=== PATIENT | female | born 1970 | race Caucasian/White ===

== ENCOUNTER → 2016-06-01 | Outpatient (CLI) | payer MEDICAID | LOC: MW.CHIM 15:26 | PROVIDERS: ATTEND Internal Medicine | DX: M25.50 Pain in unspecified joint (principal) | CPT/HCPCS: 36415; 84550; 85652; 86038; 86430 ==

== ENCOUNTER → 2016-06-14 | Outpatient (CLI) | payer MEDICAID ==
--- NOTE | 2016-06-14 17:11 | CR ---
EXAMINATION: Left foot HISTORY: Plantar fibromatosis COMPARISON: None TECHNIQUE: 2 views FINDINGS/IMPRESSION: There is no acute osseous abnormality, dislocation, or fracture identified. The re is mild hallux valgus and pes planus. There is a moderate plantar calcaneal spur.
== END ==
LOC: MW.CHPOD 13:53
PROVIDERS: ATTEND Podiatrist Foot & Ankle Surgery
DX: M72.2 Plantar fascial fibromatosis (principal); M20.12 Hallux valgus (acquired), left foot; M21.42 Flat foot [pes planus] (acquired), left foot; M77.32 Calcaneal spur, left foot
CPT/HCPCS: 73620-26-LT; 73620-LT

== ENCOUNTER 2017-01-03 14:54 | Emergency (ER) | payer MEDICAID ==
[2017-01-03 15:31] VITALS: BP 122/62
== END 2017-01-03 15:30 | disposition left against medical advice (07) ==
LOC: MW.ED 14:54
DX: Z53.21 Procedure and treatment not carried out due to patient leaving prior to being seen by health care provider (principal)

== ENCOUNTER 2017-01-04 16:34 | Emergency (ER) | payer MEDICAID ==
[2017-01-04 16:48] VITALS: BP 136/90
[2017-01-04] MEDS ORDERED: Dexamethasone 4 MG Tab PO ONE (16:51)
--- NOTE | 2017-01-04 16:51 | EDM.PDOC ---
ED HPI GENERAL MEDICAL PROBLEM - General Chief Complaint: Allergic Reaction Stated Complaint: HIVES THROUGHOUT BODY Time Seen by Provider: 01/04/17 16:49 Source of Information: Reports: Patient History Limitations: Reports: No Limitations - History of Present Illness INITIAL COMMENTS - FREE TEXT/NARRATIVE: HISTORY AND PHYSICAL: []46-year-old female who presented yesterday and then left without being seen once she found she did not have chickenpox she thought this allergy would be taken care of with Benadryl [id number] History of Present Illness: []Patient works at [employer] and was putting [employer] up. When she went home yesterday noticed that she started having itching and hives. Besides have worsened over the day Review of Systems: As per history of present illness and below otherwise all systems reviewed and negative. Past medical history: As per history of present illness and as reviewed below otherwise noncontributory. Surgical history: As per history of present illness and as reviewed below otherwise noncontributory. Social history: No reported history of drug or alcohol abuse. Family history: As per history of present illness and as reviewed below otherwise noncontributory. Physical exam: Alert and oriented female who states that she has some tightness with breathing. Skin has raised erythematous hives over her trunk and arms and back. HEENT: Atraumatic, normocehpalic, pupils reactive, negative for conjunctival pallor or scleral icterus, mucous membranes moist, throat clear, neck supple, nontender, trachea midline. Lungs: Clear to auscultation, breath sounds equal bilaterally, chest non tender. Heart: S1S2, regular, negative for clicks, rubs, or JVD. Abdomen: Soft, nondistended, nontender. Negative for masses or hepatossplenmegaly. Negative for costovertebral tenderness. Pelvis: Stable nontender. Genitourinary: Deferred. Rectal: Deferred Extremities: Atraumatic, negative for cords or calf pain. Neurovascular unremarkable. Neuro: Awake, alert, oriented. Cranial nerves II through XII unremarkable. Cerebellum unremarkable. Motor and sensory unremarkable throughout. Exam nonfocal. Diagnostics: [] Therapeutics: [Dexamethasone 4 mg by mouth] Impression: [Allergic reaction Hives] Plan: [Discharged to home] Medrol Dosepak Benadryl 50 mg by mouth every 4 hours Claritin 10 mg daily 2 weeks Pepcid [id number] 4-5 times daily for itching Definitive disposition and diagnosis as appropriate pending reevaluation and review of above. Onset: Sudden Duration: Day(s): (1) hives Pain Score (Numeric/FACES): 8 - Related Data Allergies Allergy/AdvReac Type Severity Reaction Status Date / Time hydrocodone Allergy Headache Verified 01/04/17 16:48 montelukast sodium Allergy Tachycardia Verified 01/04/17 16:48 [From Singulair] Penicillins Allergy Difficulty Verified 01/04/17 16:48 Swallowing Home Meds: Home Meds Vilazodone [Viibryd] 40 mg PO QAM 08/06/13 [History] QUEtiapine Fumarate [Seroquel Xr] 600 mg PO BEDTIME 08/24/15 [History] Diclofenac Sodium [Diclofenac Sodium ER] 100 mg PO DAILY 01/03/17 [History] Pregabalin [Lyrica] 75 mg PO BEDTIME 01/03/17 [History] Venlafaxine [Effexor] 75 mg PO DAILY 01/03/17 [History] methylPREDNISolone [Medrol] 4 mg PO ASDIRECTED #1 dosepk 01/04/17 [Rx] Past Medical History HEENT History: Reports: Impaired Vision Other HEENT History: wears glasses, has upper denture Cardiovascular History: Reports: None Respiratory History: Reports: Asthma, Sleep Apnea Other Respiratory History: uses CPAP Gastrointestinal History: Reports: Hiatal Hernia Other Gastrointestinal History: she thinks she has a hiatal hernia Genitourinary History: Reports: None 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 Musculoskeletal History: Reports: Fracture Other Musculoskeletal History: fingers Neurological History: Reports: Migraines Psychiatric History: Reports: Bipolar Other Psychiatric History: history of bipolar affective disorder Endocrine/Metabolic History: Reports: Obesity/BMI 30+ Hematologic History: Reports: None Immunologic History: Reports: None Oncologic (Cancer) History: Reports: None Dermatologic History: Reports: None - Infectious Disease History Infectious Disease History: Reports: Chicken Pox - Past Surgical History Head Surgeries/Procedures: Reports: None Cardiovascular Surgical History: Reports: None GI Surgical History: Reports: Cholecystectomy, Hernia, Inguinal Female Surgical History: Reports: Tubal Ligation Endocrine Surgical History: Reports: None Neurological Surgical History: Reports: None Musculoskeletal Surgical History: Reports: None Other Musculoskeletal Surgeries/Procedures:: Ankle surgery Oncologic Surgical History: Reports: None Dermatological Surgical History: Reports: None Social & Family History - Family History Family Medical History: Noncontributory HEENT: Reports: None Cardiac: Reports: Heart Failure Respiratory: Reports: COPD, Other (See Below) Other Respiratory Family Hisory: Emphysema Neurological: Reports: Migraines Psychiatric: Reports: Anxiety, Bipolar, Depression Oncologic: Reports: Breast, Colon, Pancreatic - Tobacco Use Smoking Status *Q: Current Every Day Smoker Years of Tobacco use: 20 Packs/Tins Daily: 0.5 Used Tobacco, but Quit: No Month Tobacco Last Used: August, Second Hand Smoke Exposure: Yes - Caffeine Use Caffeine Use: Reports: Coffee, Soda, Tea - Alcohol Use Days Per Week of Alcohol Use: 0 Number of Drinks Per Day: 0 Total Drinks Per Week: 0 - Recreational Drug Use Recreational Drug Use: No Drug Use in Last 12 Months: No ED ROS ALLERGIC REACTION - Review of Systems Review Of Systems: ROS reveals no pertinent complaints other than HPI. ED EXAM GENERAL NO PERIP PULSE - Physical Exam Exam: See Below (See dictation) Course - Vital Signs Last Recorded V/S: Last Vital Signs Temp 35.8 C 01/04/17 16:45 Pulse 106 H 01/04/17 16:45 Resp 18 01/04/17 16:45 BP 136/90 01/04/17 16:45 Pulse Ox 95 01/04/17 16:45 - Orders/Labs/Meds Meds: Medications Discontinued Medications Generic Name Dose Route Start Last Admin Trade Name Susana PRN Reason Stop Dose Admin Dexamethasone 4 mg 01/04/17 16:51 01/04/17 17:08 Dexamethasone PO 01/04/17 16:52 4 mg ONETIME ONE Administration Departure - Departure Time of Disposition: 17:14 Disposition: Home, Self-Care 01 Condition: Good Clinical Impression: Hives Allergic reaction Qualifiers: Encounter type: initial encounter Qualified Code(s): T78.40XA - Allergy, unspecified, initial encounter - Discharge Information Prescriptions: methylPREDNISolone [Medrol] 4 mg PO ASDIRECTED #1 dosepk Referrals: PCP,None [Primary Care Provider] - Additional Instructions: The following information is given to patients seen in the emergency department who are being discharged to home. This information is to outline your options for follow-up care. We provide all patients seen in our emergency department with a follow-up referral. The need for follow-up, as well as the timing and circumstances, are variable depending upon the specifics of your emergency department visit. If you don't have a primary care physician on staff, we will provide you with a referral. We always advise you to contact your personal physician following an emergency department visit to inform them of the circumstance of the visit and for follow-up with them and/or the need for any referrals to a consulting specialist. The emergency department will also refer you to a specialist when appropriate. This referral assures that you have the opportunity for followup care with a specialist. All of these measure are taken in an effort to provide you with optimal care, which includes your followup. Under all circumstances we always encourage you to contact your private physician who remains a resource for coordinating your care. When calling for followup care, please make the office aware that this follow-up is from your recent emergency room visit. If for any reason you are refused follow-up, please contact the [facility] emergency department at and asked to speak to the emergency department charge nurse. Prescription has been electronically sent to [place] pharmacy Follow-up with your regular provider Recommended to take Claritin 10 mg one daily for the next 2 weeks Benadryl 50 mg by mouth every 4 hours Pepcid [id number] 4-5 times daily to relieve itching
== END 2017-01-04 17:34 | disposition home or self-care (01) ==
LOC: MW.ED 16:34
DX: L50.0 Allergic urticaria (principal); F17.210 Nicotine dependence, cigarettes, uncomplicated; Z88.5 Allergy status to narcotic agent; Z88.0 Allergy status to penicillin; Z79.899 Other long term (current) drug therapy
CPT/HCPCS: 99282; J8540

== ENCOUNTER 2017-01-09 12:37 | Emergency (ER) | payer OTHER, MEDICAID ==
[2017-01-09 12:42] VITALS: BP 137/89
[2017-01-09] MEDS ORDERED: LORazepam 2 MG/ML SDV IVPUSH ONE (12:51)
[2017-01-09] MEDS ORDERED: Aspirin 81 MG Tab.Chew PO ONE (13:17)
[2017-01-09 13:23] LABS: CHLORIDE,CL 108 mmol/L (98-110); SODIUM,NA 139 mmol/L (136-146)
--- NOTE | 2017-01-09 13:59 | CR ---
EXAMINATION: Portable chest radiograph. HISTORY: Shortness of breath. FINDINGS: The trachea is midline. The cardiomediastinal silhouette is within normal limits. No pulmonary infilt rates, effusions or pneumothorax. Osseous structures appear unremarkable. IMPRESSION: No acute cardiopulmonary process.
--- NOTE | 2017-01-09 14:01 | EDM.PDOC ---
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 However upon my arrival the symptoms had resolved of chest pain shortness of breath she had received an aspirin in route from the EMS workers. Patient is in no distress sitting comfortably in a chair no fever nausea vomiting diarrhea constipation chest pain shortness breath headache dizziness palpitation about a urine symptoms Review of systems: As per history of present illness and below otherwise all systems reviewed and negative. Past medical history: As per history of present illness and as reviewed below otherwise noncontributory. Surgical history: As per history of present illness and as reviewed below otherwise noncontributory. Social history: No reported history of drug or alcohol abuse. Family history: As per history of present illness and as reviewed below otherwise noncontributory. Physical exam: HEENT: Atraumatic, normocephalic, pupils reactive, negative for conjunctival pallor or scleral icterus, mucous membranes moist, throat clear, neck supple, nontender, trachea midline. Lungs: Clear to auscultation, breath sounds equal bilaterally, chest nontender. Heart: S1S2, regular, negative for clicks, rubs, or JVD. Abdomen: Soft, nondistended, nontender. Negative for masses or hepatosplenomegaly. Negative for costovertebral tenderness. Pelvis: Stable nontender. Genitourinary: Deferred. Rectal: Deferred. Extremities: Atraumatic, negative for cords or calf pain. Neurovascular unremarkable. Neuro: Awake, alert, oriented. Cranial nerves II through XII unremarkable. Cerebellum unremarkable. Motor and sensory unremarkable throughout. Exam nonfocal. Diagnostics: []Lab as below EKG Chest 1 view Therapeutics: []Aspirin 324 mg chewable provided via last Ativan 1 mg by mouth now Impression: []Anxiety/panic improved Chronic history of baseline Definitive disposition and diagnosis as appropriate pending reevaluation and review of above. Chest Pain Score (Numeric/FACES): 7 - Related Data Allergies Allergy/AdvReac Type Severity Reaction Status Date / Time hydrocodone Allergy Headache Verified 01/09/17 12:42 montelukast sodium Allergy Tachycardia Verified 01/09/17 12:42 [From Singadrianair] Penicillins Allergy Difficulty Verified 01/09/17 12:42 Swallowing Home Meds: Home Meds Vilazodone [Viibryd] 40 mg PO QAM 08/06/13 [History] QUEtiapine Fumarate [Seroquel Xr] 600 mg PO BEDTIME 08/24/15 [History] Pregabalin [Lyrica] 75 mg PO BEDTIME 01/03/17 [History] Venlafaxine [Effexor] 75 mg PO DAILY 01/03/17 [History] Past Medical History HEENT History: Reports: Impaired Vision Other HEENT History: wears glasses, has upper denture Cardiovascular History: Reports: None Respiratory History: Reports: Asthma, Sleep Apnea Other Respiratory History: uses CPAP Gastrointestinal History: Reports: Hiatal Hernia Other Gastrointestinal History: she thinks she has a hiatal hernia Genitourinary History: Reports: None 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 Musculoskeletal History: Reports: Fracture Other Musculoskeletal History: fingers Neurological History: Reports: Migraines Psychiatric History: Reports: Bipolar Other Psychiatric History: history of bipolar affective disorder Endocrine/Metabolic History: Reports: Obesity/BMI 30+ Hematologic History: Reports: None Immunologic History: Reports: None Oncologic (Cancer) History: Reports: None Dermatologic History: Reports: None - Infectious Disease History Infectious Disease History: Reports: Chicken Pox - Past Surgical History Head Surgeries/Procedures: Reports: None Cardiovascular Surgical History: Reports: None GI Surgical History: Reports: Cholecystectomy, Hernia, Inguinal Female Surgical History: Reports: Tubal Ligation Endocrine Surgical History: Reports: None Neurological Surgical History: Reports: None Musculoskeletal Surgical History: Reports: None Other Musculoskeletal Surgeries/Procedures:: Ankle surgery Oncologic Surgical History: Reports: None Dermatological Surgical History: Reports: None Social & Family History - Family History Family Medical History: Noncontributory HEENT: Reports: None Cardiac: Reports: Heart Failure Respiratory: Reports: COPD, Other (See Below) Other Respiratory Family Hisory: Emphysema Neurological: Reports: Migraines Psychiatric: Reports: Anxiety, Bipolar, Depression Oncologic: Reports: Breast, Colon, Pancreatic - Tobacco Use Smoking Status *Q: Current Every Day Smoker Years of Tobacco use: 20 Packs/Tins Daily: 0.5 Used Tobacco, but Quit: No Month Tobacco Last Used: August, Second Hand Smoke Exposure: Yes - Caffeine Use Caffeine Use: Reports: Coffee - Alcohol Use Days Per Week of Alcohol Use: 0 Number of Drinks Per Day: 0 Total Drinks Per Week: 0 - Recreational Drug Use Recreational Drug Use: No Drug Use in Last 12 Months: No ED ROS GENERAL - Review of Systems Review Of Systems: ROS reveals no pertinent complaints other than HPI. ED EXAM, GENERAL - Physical Exam Exam: See Below Course - Vital Signs Last Recorded V/S: Last Vital Signs Temp 97.7 F 01/09/17 12:38 Pulse 67 01/09/17 12:38 Resp 18 01/09/17 12:38 BP 137/89 01/09/17 12:38 Pulse Ox 98 01/09/17 12:38 - Orders/Labs/Meds Orders: Active Orders 24 hr Category Date Time Status EKG Documentation Completion [RC] STAT Care 01/09/17 12:43 Active Chest 1V Frontal [CR] Stat Exams 01/09/17 13:17 Taken Labs: Laboratory Tests 01/09/17 01/09/17 Range/Units 12:54 12:54 WBC 5.58 (4.0-11.0) K/uL RBC 4.14 L (4.30-5.90) M/uL Hgb 13.0 (12.0-16.0) g/dL Hct 38.7 (36.0-46.0) % MCV 93.5 (80.0-98.0) fL MCH 31.4 (27.0-32.0) pg MCHC 33.6 (31.0-37.0) g/dL RDW Std Deviation 51.9 (28.0-62.0) fl RDW Coeff of Herb 15 (11.0-15.0) % Plt Count 249 (150-400) K/uL MPV 8.90 (7.40-12.00) fL Neut % (Auto) 60.6 (48.0-80.0) % Lymph % (Auto) 24.4 (16.0-40.0) % [place] % (Auto) 8.4 (0.0-15.0) % Eos % (Auto) 5.9 (0.0-7.0) % Baso % (Auto) 0.7 (0.0-1.5) % Neut # (Auto) 3.4 (1.4-5.7) K/uL Lymph # (Auto) 1.4 (0.6-2.4) K/uL [place] # (Auto) 0.5 (0.0-0.8) K/uL Eos # (Auto) 0.3 (0.0-0.7) K/uL Baso # (Auto) 0.0 (0.0-0.1) K/uL Nucleated RBC % 0.0 /100WBC Nucleated RBCs # 0 K/uL Sodium 139 (136-146) mmol/L Potassium 4.4 (3.5-5.1) mmol/L Chloride 108 (98-110) mmol/L Carbon Dioxide 23 (21-31) mmol/L BUN 13 (6.0-23.0) mg/dL Creatinine 0.9 (0.6-1.5) mg/dL Est Cr Clr Drug Dosing 64.61 mL/min Estimated GFR (MDRD) > 60.0 ml/min Glucose 103 (60-110) mg/dL Calcium 8.9 (8.8-10.8) mg/dL Total Bilirubin 0.2 (0.1-1.5) mg/dL AST 22 (5-40) IU/L ALT 28 (8-54) IU/L Alkaline Phosphatase 73 (40-150) Troponin I < 0.10 (0.0-0.29) NG/ML Total Protein 6.5 (6.0-8.0) g/dL Albumin 3.6 (3.5-5.0) g/dL Globulin 2.9 (2.0-3.5) g/dL Albumin/Globulin Ratio 1.2 L (1.3-2.8) Meds: Medications Discontinued Medications Generic Name Dose Route Start Last Admin Trade Name Freq PRN Reason Stop Dose Admin Aspirin 324 mg 01/09/17 13:17 01/09/17 13:36 Aspirin PO 01/09/17 13:18 Not Given ONETIME ONE Lorazepam 1 mg 01/09/17 12:51 01/09/17 13:36 Ativan IVPUSH 01/09/17 12:52 1 mg ONETIME ONE Administration Departure - Departure Time of Disposition: 14:00 Disposition: Home, Self-Care 01 Condition: Good Clinical Impression: Anxiety - Discharge Information Referrals: PCP,Unknown [Primary Care Provider] - Additional Instructions: 24 hours off work Continue current medication Return if symptoms persist or worsen or new concerning symptoms develop Follow-up with primary care in 2 weeks The following information is given to patients seen in the emergency department who are being discharged to home. This information is to outline your options for follow-up care. We provide all patients seen in our emergency department with a follow-up referral. The need for follow-up, as well as the timing and circumstances, are variable depending upon the specifics of your emergency department visit. If you don't have a primary care physician on staff, we will provide you with a referral. We always advise you to contact your personal physician following an emergency department visit to inform them of the circumstance of the visit and for follow-up with them and/or the need for any referrals to a consulting specialist. The emergency department will also refer you to a specialist when appropriate. This referral assures that you have the opportunity for follow-up care with a specialist. All of these measure are taken in an effort to provide you with optimal care, which includes your follow-up. Under all circumstances we always encourage you to contact your private physician who remains a resource for coordinating your care. When calling for follow-up care, please make the office aware that this follow-up is from your recent emergency room visit. If for any reason you are refused follow-up, please contact the [facility] emergency department at and asked to speak to the emergency department charge nurse. - My Orders Last 24 Hours: My Active Orders 01/09/17 12:43 EKG Documentation Completion [RC] STAT 01/09/17 13:17 Chest 1V Frontal [CR] Stat - Assessment/Plan Last 24 Hours: My Active Orders 01/09/17 12:43 EKG Documentation Completion [RC] STAT 01/09/17 13:17 Chest 1V Frontal [CR] Stat
== END 2017-01-09 14:25 | disposition home or self-care (01) ==
LOC: MW.ED 12:37
DX: F41.0 Panic disorder [episodic paroxysmal anxiety] (principal); F17.210 Nicotine dependence, cigarettes, uncomplicated; Z88.5 Allergy status to narcotic agent; Z88.0 Allergy status to penicillin; Z79.899 Other long term (current) drug therapy
CPT/HCPCS: 36415; 71010; 80053; 84484; 85025; 96374; 99285; J2060; 99283

== ENCOUNTER 2017-01-18 06:21 | Day surgery (SDC) | payer MEDICAID ==
[~2017-01-18 06:21] MED LIST: Lactated Ringers 1,000 ML IV SCH
[2017-01-18] MEDS ORDERED: Bupivacaine 0.25% 10 ML SDV INJECT ONE (07:00)
[2017-01-18] MEDS ORDERED: Bupivacaine 25%/EPINEPHrine/PF 0 ML ONE (07:24)
[2017-01-18] MEDS ORDERED: Clindamycin Phosphate in D5W 600 MG in Premix Bag 1 BAG IV ONE ×2 (07:30)
[2017-01-18] MEDS ORDERED: fentaNYL 100 MCG/2 ML SDV ONE (07:33)
[2017-01-18] MEDS ORDERED: Ondansetron 4 MG/2 ML SDV ONE (07:33)
[2017-01-18] MEDS ORDERED: Midazolam 1 MG/ML 2 ML SDV ONE (07:33)
[2017-01-18] MEDS ORDERED: Propofol 200 MG/20 ML SDV ONE (07:33)
--- NOTE | 2017-01-18 07:39 | PCM.PREANE ---
Preanesthetic Assessment - Anesthesia/Transfusion/Family Hx Anesthesia History: Prior Anesthesia Without Reaction Other Type of Anesthesia Reaction Comment: Denies any known problem in past, no known famly hx: problems Family History of Anesthesia Reaction: No Transfusion History: No Prior Transfusion(s) - Review of Systems General: No Symptoms Pulmonary: No Symptoms Cardiovascular: No Symptoms Gastrointestinal: No Symptoms Neurological: No Symptoms Other: Reports: None - Physical Assessment NPO Status Date: 01/17/17 NPO Status Time: 23:00 O2 Sat by Pulse Oximetry: 92 Respiratory Rate: 12 Vital Signs: Last Vital Signs Temp 36.2 C 01/18/17 06:45 Pulse 91 01/18/17 06:45 Resp 12 01/18/17 06:45 BP 122/61 01/18/17 06:45 Pulse Ox 92 L 01/18/17 06:45 Height: 1.6 m Weight: 122.016 kg ASA Class: 2 Mental Status: Alert & Oriented x3 Airway Class: Mallampati = 2 Dentition: Reports: Normal Dentition ROM/Head Extension: Full Lungs: Clear to Auscultation, Normal Respiratory Effort Cardiovascular: Regular Rate, Regular Rhythm - Lab Values: Laboratory Last Values Urine HCG, Qual NEGATIVE (NEGATIVE) 01/18/17 06:25 - Allergies Allergies/Adverse Reactions: Allergies Allergy/AdvReac Type Severity Reaction Status Date / Time hydrocodone Allergy Headache Verified 01/09/17 12:42 montelukast sodium Allergy Tachycardia Verified 01/09/17 12:42 [From Jr] Penicillins Allergy Difficulty Verified 01/09/17 12:42 Swallowing - Anesthesia Plan Pre-Op Medication Ordered: None - Acknowledgements Anesthesia Type Planned: General Anesthesia Pt an Appropriate Candidate for the Planned Anesthesia: Yes Alternatives and Risks of Anesthesia Discussed w Pt/Guardian: Yes Pt/Guardian Understands and Agrees with Anesthesia Plan: Yes PreAnesthesia Questionnaire HEENT History: Reports: Impaired Vision Other HEENT History: wears glasses, has upper denture Cardiovascular History: Reports: None Respiratory History: Reports: Asthma, Sleep Apnea Other Respiratory History: uses CPAP Gastrointestinal History: Reports: Hiatal Hernia Genitourinary History: Reports: None 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 Musculoskeletal History: Reports: Fracture, Fibromyalgia Other Musculoskeletal History: fingers Neurological History: Reports: Migraines Psychiatric History: Reports: Anxiety, Bipolar, Depression Other Psychiatric History: history of bipolar affective disorder Endocrine/Metabolic History: Reports: Obesity/BMI 30+ Hematologic History: Reports: None Immunologic History: Reports: None Oncologic (Cancer) History: Reports: None Dermatologic History: Reports: None - Infectious Disease History Infectious Disease History: Reports: Chicken Pox - Past Surgical History Head Surgeries/Procedures: Reports: None HEENT Surgical History: Reports: Tonsillectomy Cardiovascular Surgical History: Reports: None Respiratory Surgical History: Reports: None GI Surgical History: Reports: Cholecystectomy, Hernia, Inguinal Female Surgical History: Reports: Tubal Ligation Endocrine Surgical History: Reports: None Neurological Surgical History: Reports: None Musculoskeletal Surgical History: Reports: Carpal Tunnel Other Musculoskeletal Surgeries/Procedures:: Ankle surgery Oncologic Surgical History: Reports: None Dermatological Surgical History: Reports: None - SUBSTANCE USE Smoking Status *Q: Current Every Day Smoker Tobacco Use Within Last Twelve Months: Cigarettes Second Hand Smoke Exposure: Yes Days Per Week of Alcohol Use: 0 Number of Drinks Per Day: 0 Total Drinks Per Week: 0 Recreational Drug Use History: No - HOME MEDS Home Medications: Home Meds Vilazodone [Viibryd] 40 mg PO QAM 08/06/13 [History] QUEtiapine Fumarate [Seroquel Xr] 400 mg PO BEDTIME 08/24/15 [History] Pregabalin [Lyrica] 75 mg PO BEDTIME 01/03/17 [History] Venlafaxine [Effexor] 75 mg PO DAILY 01/03/17 [History] Albuterol [IJD: Albuterol HFA] 2 puff INH ASDIRECTED PRN 01/13/17 [History] Cyclobenzaprine HCl 10 mg PO BID PRN 01/13/17 [History] Temazepam 30 mg PO BEDTIME PRN 01/13/17 [History] - CURRENT (IN HOUSE) MEDS Current Meds: Current Medications Hydrocodone Bitart/Acetaminophen ([place] 325-5 Mg) 1 tab PO Q4H PRN PRN Reason: Pain Clindamycin Phosphate 600 mg/ (Premix) 50 mls @ 150 mls/hr IV ONETIME ONE Stop: 01/18/17 07:49 Last Admin: 01/18/17 07:08 Dose: 150 mls/hr Lactated Ringer's (Ringers, Lactated) 1,000 mls @ 125 mls/hr IV ASDIRECTED TATI Last Admin: 01/18/17 07:08 Dose: 125 mls/hr Discontinued Medications Bupivacaine HCl (Sensorcaine-Mpf 0.25%) 10 ml INJECT ONETIME ONE Stop: 01/18/17 07:01 Fentanyl (Sublimaze) Confirm Administered Dose 100 mcg .ROUTE .STK-MED ONE Stop: 01/18/17 07:34 Bupivacaine HCl/Epinephrine Bitart (Sensorc Mpf 0.25%-Epi [id number]) Confirm Administered Dose 30 mls @ as directed .ROUTE .STK-MED ONE Stop: 01/18/17 07:25 Midazolam HCl (Versed 1 Mg/Ml) Confirm Administered Dose 2 mg .ROUTE .STK-MED ONE Stop: 01/18/17 07:34 Ondansetron HCl (Zofran) Confirm Administered Dose 4 mg .ROUTE .STK-MED ONE Stop: 01/18/17 07:34 Propofol (Diprivan 20 Ml) Confirm Administered Dose 200 mg .ROUTE .STK-MED ONE Stop: 01/18/17 07:34
[2017-01-18] MEDS ORDERED: Bupivacaine 0.25% 10 ML SDV ONE (07:47)
--- NOTE | 2017-01-18 09:39 | PCM.POSTAN ---
POST ANESTHESIA ASSESSMENT - MENTAL STATUS Mental Status: Somnolent - RESPIRATORY Respiratory Status: Respiratory Rate WNL, Airway Patent, O2 Saturation Stable - CARDIOVASCULAR CV Status: Pulse Rate WNL, Blood Pressure Stable - GASTROINTESTINAL GI Status: No Symptoms - POST OP HYDRATION Hydration Status: Adequate & Stable - OBSERVATIONS Free Text/Narrative:: prolongued sedation
[2017-01-18] MEDS ORDERED: Acetaminophen/HYDROcodone 325-5 MG Tab PO PRN (10:00)
--- NOTE | 2017-01-18 10:48 | PCM48HPAN ---
Post Anesthesia Note - EVALUATION WITHIN 48HRS OF ANESTHETIC Vital Signs in Normal Range: Yes Patient Participated in Evaluation: Yes Respiratory Function Stable: Yes Airway Patent: Yes Cardiovascular Function Stable: Yes Hydration Status Stable: Yes Pain Control Satisfactory: Yes Nausea and Vomiting Control Satisfactory: Yes Mental Status Recovered: Yes
[2017-01-18 13:25] VITALS: BP 118/61
--- NOTE | 2017-01-18 21:12 | PCM.OPNOTE ---
- General Post-Op/Procedure Note Date of Surgery/Procedure: 01/18/17 Operative Procedure(s): Left carpal tunnel release and excision of left volar wrist ganglion Pre Op Diagnosis: left carpal tunnel syndrome and left volar wrist ganglion Post-Op Diagnosis: Same Anesthesia Technique: General LMA Primary Surgeon: Deborah Cantu Anesthesia Provider: Anabel Archer Repairer Helper: Sharlene Joshua Reason Repairer Helper Was Necessary: retraction EBL in mLs: 0 Complications: None Condition: Good Free Text/Narrative:: Intake & Output 01/18/17 01/18/17 01/18/17 07:59 15:59 23:59 Intake Total 1200 Balance 1200
--- NOTE | 2017-01-19 01:11 | OR ---
SURGEON: DEBORAH CANTU MD DATE OF PROCEDURE: 01/18/2017 PREOPERATIVE DIAGNOSES: Left carpal tunnel syndrome and left volar wrist ganglion. POSTOPERATIVE DIAGNOSES: Left carpal tunnel syndrome and left volar wrist ganglion. PROCEDURE: Excision of left volar wrist ganglion and left carpal tunnel release. PRIMARY SURGEON: Deborah Cantu MD. MPH. FINAL ASSEMBLER: MELVIN Berumen. INDICATIONS: Ms. Pennington is a 46-year-old female seen today in evaluation for left carpal tunnel syndrome and left ganglion of the volar wrist. Risks and benefits of the surgery were discussed with her and she was in agreement to proceed with left carpal tunnel release and removal of the ganglion. Both were causing her significant difficulties. Risks were including, but not limited to bleeding, infection, damage to underlying or overlying structures, possible need for future interventions, or possible scarring. PROCEDURE IN DETAIL: After informed consent was obtained and placed on the chart, the patient was brought to the operating theater and laid in supine position. After adequate general anesthesia was obtained and preop antibiotics given, the area was prepped and draped in a normal fashion. A time-out was completed to confirm side and site. Once adequately prepped and draped, attention was then paid to infiltration of 10cc of local anesthesia of 0.25% bupivacaine without epinephrine in a median nerve and superficial radial nerve block. Once adequately blocked, the arm was exsanguinated and the tourniquet was insufflated to 200 mmHg. Attention was first paid to the carpal tunnel release and an incision was made over the transverse carpal ligament using a 15 blade, dissecting through the skin and subcutaneous tissues. The ligament was breached, and dissection was carried distally and proximally under direct visualization using a Littler scissors. Adequate release was appreciated and the nerve was freed of minimal scar tissue. Once this was completed and the nerve was appreciated to be fully released, the area was irrigated and closed using a 5-0 nylon stitch in a horizontal mattress fashion. Attention was then paid to the volar wrist ganglion and a separate longitudinal incision over the volar wrist at the flexor carpi radialis area was made and dissection was carried down circumferentially around the ganglion itself. The ganglion was easily traced to the joint and the radial artery was protected at all times. Branches of the superficial radial nerve were retracted in order to preserve these as well. Once the stalk was located and appropriately dissected, it was transected and sent for pathology and cauterized. A single 4-0 figure-of - eight suture was placed in the joint capsule to allow closure and then the wound was copiously irrigated. The tourniquet was desufflated at the end of the case for 16 minutes of tourniquet time. Appropriate hemostasis was obtained prior to closure. The skin was then closed with a deep 4-0 Monocryl in a running subcuticular for the skin. Once adequately closed, the ganglion incision was dressed with Steri-Strips and Xeroform was placed over the carpal tunnel incision and the patient was placed in a short-arm wrist cock-up splint. The patient tolerated the procedure well and all counts and needles were correct at the end of the case. FOLLOWUP INSTRUCTIONS: The patient was transferred to the PACU in stable condition and will follow up with us in 10 to 14 days, sooner if any problems, questions, or concerns. She will leave the splint in place until that time and was given a prescription for oxycodone 5 mg and instructed to take 1/2 to 1 tablet every 4 to 6 hours p.r.n. for pain. She will call with any issues or concerns. HEGGTPHILIPPE / MILAN /[id number]
== END 2017-01-18 10:50 | disposition home or self-care (01) ==
LOC: MW.SDS 06:21
PROVIDERS: ATTEND Plastic Surgery
DX: I46.9 Cardiac arrest, cause unspecified (principal); R07.9 Chest pain, unspecified; F41.0 Panic disorder [episodic paroxysmal anxiety]; R06.00 Dyspnea, unspecified; J45.909 Unspecified asthma, uncomplicated; G47.30 Sleep apnea, unspecified; G43.909 Migraine, unspecified, not intractable, without status migrainosus; F31.9 Bipolar disorder, unspecified; F17.210 Nicotine dependence, cigarettes, uncomplicated; E66.9 Obesity, unspecified; Z88.0 Allergy status to penicillin; Z88.5 Allergy status to narcotic agent; Z88.8 Allergy status to other drugs, medicaments and biological substances; Z79.899 Other long term (current) drug therapy; Z99.89 Dependence on other enabling machines and devices; Z90.49 Acquired absence of other specified parts of digestive tract; Z98.51 Tubal ligation status; Z98.890 Other specified postprocedural states; Z80.3 Family history of malignant neoplasm of breast; Z80.0 Family history of malignant neoplasm of digestive organs
CPT/HCPCS: 81025; 88302; 92950; 99285; J2250; J2405; J3010; J7120; 01810; J2704